=== PATIENT | male | born 1990 | race Caucasian/White ===

== ENCOUNTER 2017-03-24 19:45 | Emergency (ER) | payer OTHER | END 2017-03-24 21:18 | disposition home or self-care (01) | LOC: E/R 21:18 | DX: J20.9 Acute bronchitis, unspecified (principal) | CPT/HCPCS: 99284; Z7502 ==

== ENCOUNTER 2017-07-30 11:33 | Emergency (ER) | payer OTHER | END 2017-07-30 12:51 | disposition home or self-care (01) | LOC: FTE 11:33 | DX: J30.9 Allergic rhinitis, unspecified (principal) | CPT/HCPCS: 99283; Z7502 ==

== ENCOUNTER 2018-03-11 22:22 | Emergency (ER) | payer OTHER | END 2018-03-12 01:41 | disposition home or self-care (01) | LOC: FTE 22:22 | DX: R19.7 Diarrhea, unspecified (principal); R40.2412 Glasgow coma scale score 13-15, at arrival to emergency department | CPT/HCPCS: 99282; Z7502 ==